=== PATIENT | male | born 1985 | race Caucasian/White ===

== ENCOUNTER 2016-02-26 11:54 | Emergency (ER) | payer OTHER ==
[2016-02-26 12:04] VITALS: BP 131/66; PULSE 92; RESP 18; TEMP 99; O2SAT 95
[2016-02-26] MEDS ORDERED: IPRATROPIUM/ALBUTEROL 3 ML DEYVIAL IH ONE ×2 (12:24→12:31)
--- NOTE | 2016-02-26 12:28 | UCPHY ---
H & P Time Seen by Provider: 02/26/16 12:05 Patient Type: Established HPI/ROS: This patient presents with a chief complaint of cough which began yesterday. Last night he felt short of breath had to sleep in the upright position. He describes coughing when he exhales. He also describes as central chest pain which is sharp whenever he coughs. In addition he has had a subjective fever, mild nasal congestion, mild sore throat, myalgias and headache. He has never had pulmonary problems including asthma or pneumonia. REVIEW OF SYSTEMS: Constitutional: Subjective fever, malaise Eyes: No complaint ENT: Mild sore throat mild nasal congestion, no ear pain Respiratory: Cough, shortness of breath Cardiac: Sharp chest pain with coughing Gastrointestinal: Not addressed Genitourinary: Not addressed Musculoskeletal: Myalgias Skin: No rash Neurological: Headache Smoking Status: Never smoked Physical Exam: GENERAL: Well-appearing, well-nourished and in no acute distress. HEAD: Atraumatic, normocephalic. EYES: sclera anicteric, conjunctiva are normal. ENT: TMs normal, nares patent, oropharynx clear without exudates. Moist mucous membranes. NECK: Normal range of motion, supple without lymphadenopathy or JVD. LUNGS: Breath sounds clear to auscultation bilaterally and equal. No wheezes rales or rhonchi. On forced expiration there may be prolonged expiratory phase but when prompted to do so the patient did cough. HEART: Regular rate and rhythm without murmurs, rubs or gallops. EXTREMITIES: Normal range of motion, no pitting or edema. No clubbing or cyanosis. NEUROLOGICAL: Cranial nerves II through XII grossly intact. Normal speech, normal gait. PSYCH: Normal mood, normal affect. SKIN: Warm, dry, normal turgor, no visible rashes or lesions. Constitutional: Initial Vital Signs Temperature (C) 37.2 C 02/26/16 12:00 Heart Rate 92 02/26/16 12:00 Respiratory Rate 18 02/26/16 12:00 Blood Pressure 131/66 H 02/26/16 12:00 O2 Sat (%) 95 02/26/16 12:00 O2 Delivery Mode Room Air Allergies/Adverse Reactions: No Known Allergies Allergy (Unverified 02/19/15 09:41) Home Medications: Medication Instructions Recorded Amoxicillin Trihydrate 500 mg PO TID #21 cap 02/19/15 [Amoxicillin 500mg cap] Albuterol [Albuterol HFA 8 gm] 2 puffs IH QID #1 mdi 02/26/16 HYDROcodone/HOMATROPINE HYCODA 1 tsp PO Q4-6PRN PRN #120 ml 02/26/16 [Hycodan Syrup (RX)] Medical Decision Making ED Course/Re-evaluation: The patient was given a DuoNeb in afterwards thought he might be coughing less and that his cough was not as severe when he exhaled. Differential Diagnosis: I find no evidence of pneumonia or esophageal rupture. - Data Points Medications Given: Discontinued Medications Albuterol/Ipratropium (Duoneb) 3 ml IH EDNOW ONE Stop: 02/26/16 12:32 Last Admin: 02/26/16 12:37 Dose: 3 ml Departure - Departure Disposition: Home, Routine, Self-Care Clinical Impression: Acute bronchitis Qualifiers: Bronchitis organism: unspecified organism Qualifier Code: (J20.9) Acute bronchitis, unspecified Instructions: Acute Bronchitis (ED) Additional Instructions: If your symptoms have not improved in 3 or 4 days you should be re-evaluated. If you develop a fever greater than 101 you should be assessed for influenza. Use the inhaler at least 4 times daily but for coughing episodes you may use it every 2 hours if necessary. Adult Pain & Fever Control: We recommend Acetaminophen (Tylenol) and Ibuprofen (Motrin, Advil) for pain and fever control. When fever is high or pain severe, both drugs can be used at the same time, but at different intervals. Please note the time differences. Your dose is: Acetaminophen [650]mg every 4 to 6 hours ibuprofen [600]mg every [6] hours with food OR naproxen Sodium (Aleve) [440]mg every 12 hours. Note: do not take Acetaminophen with Hydrocodone (Vicodin, Lortab) or Oxycodone (Percocet). These medications also contain Acetaminophen. No more than 3000 mg of Acetaminophen should be taken in 24 hours (for an adult) . The maximal dose of ibuprofen that it is safe in a 24-hour period is 2400 mg. You may take 400 mg every 4 hours, 600 mg every 6 hours or 800 mg every 8 hours safely. Referrals: Colby Velasquez DO [Primary Care Provider] - As per Instructions Prescriptions: Albuterol [Albuterol HFA 8 gm] 2 puffs IH QID #1 mdi HYDROcodone/HOMATROPINE HYCODA [Hycodan Syrup (RX)] 1 tsp PO Q4-6PRN PRN #120 ml PRN Reason: cough - PQRS PQRS Measurement: Not applicable
== END 2016-02-26 13:07 | disposition home or self-care (01) ==
LOC: CED 11:54
DX: J20.9 Acute bronchitis, unspecified (principal)
CPT/HCPCS: 99214-PO; G0463-PO